=== PATIENT | male | born 1940 | race Caucasian/White ===

== ENCOUNTER 2020-06-23 12:11 | Observation (INO) | payer OTHER, SELFPAY ==
[2020-06-23] VITALS (19 sets, daily range): BP systolic 115–167; BP diastolic 69–80; PULSE 70–79; RESP 14–24; TEMP 37.2–39.2; O2SAT 93–96; BMI 29.9
[2020-06-23 12:42] LABS: Hemoglobin 13.9 g/dL (13.5-17.5); Mean Corpuscular Hemoglobin 32.1 PG (26-34); Mean Corpuscular Volume 94.5 fL (80-100); Platelet Count 273 X10^3/uL (150-400); Red Blood Cell Count 4.34 X10^6/uL (4.5-5.9)
[2020-06-23 12:43] LABS: Add Manual Diff / Slide Review YES
[2020-06-23 12:45] LABS: Appearance Urine UA CLOUDY; Bilirubin Urine UA NEGATIVE (NEGATIVE); Color Urine UA YELLOW; Glucose Urine UA NEGATIVE (Negative); Ketones Urine UA NEGATIVE (NEGATIVE); Leukocyte Esterase Urine UA 1+ (NEGATIVE); Nitrite Urine UA POSITIVE (Negative); Occult Blood Urine UA 3+ (Negative); Protein Urine UA 1+ (Negative); Specific Gravity Urine UA 1.025 (1.000-1.035); Urobilinogen Urine UA 0.2 E.U./dL (0.2)
[2020-06-23 12:49] LABS: Ammonia (NH3) < 9 umol/L (9-30)
[2020-06-23 12:49] LABS: Bacteria Urine Many (>30); RBC Urine 5-10/HPF (0-5/HPF); WBC Urine 10-30/HPF (0-5/HPF)
[2020-06-23 12:50] LABS: Culture Indicated Urine Specimen Cultured
[2020-06-23 12:52] LABS: Alanine Aminotransferase 33 IU/L (<50); Albumin 4.1 g/dL (3.5-5.0); Albumin Globulin Ratio 1.2 (1.0-2.8); Alkaline Phosphatase 72 U/L (38-126); Aspartate Aminotransferase 34 IU/L (17-59); Bilirubin Total 1.3 mg/dL (0.2-1.3); Blood Urea Nitrogen 21 mg/dL (9-20); Calcium 8.8 mg/dL (8.4-10.2); Carbon Dioxide 25 mmol/L (22-32); Chloride 103 mmol/L (98-107); Creatine Kinase 68 U/L (55-170); Estimated Glomerular Filt Rate > 60.0 mL/min (>60); Ethanol (ETOH) < 10 mg/dL; Globulin 3.5 g/dL (1.7-4.1); Glucose 110 mg/dL (80-110); HEMOLYSIS < 15 (0-50); Lactate (Lactic Acid) 1.1 mmol/L (0.7-2.1); Lipase 47 U/L (23-300); Potassium 3.8 mmol/L (3.4-5.1); Sodium 136 mmol/L (137-145); Total Protein 7.6 g/dL (6.3-8.2)
--- NOTE | 2020-06-23 12:55 | ED.GENADULT ---
HPI - General Adult General Chief complaint: Urogenital-Male Stated complaint: disoriented,fever,thinks uti from Catheter Time Seen by Provider: 06/23/20 12:21 Source: patient and family Mode of arrival: Ambulatory Limitations: altered mental status History of Present Illness HPI narrative: 79-year-old male who is here secondary to confusion and presumed infection from his indwelling urinary catheter. He is here with his daughter. A little over 1 week ago patient was seen in outside facility where he was diagnosed with urinary retention. He does have a history of BPH. The did not appear to be any infection at the time he knee was not sent home with any antibiotics. He has followed up with urology since then it told him that he needs to keep the catheter in until next week. Over the past 12-24 hours he has developed increasing confusion and did have a fever this morning. Patient's daughter thought that he potentially had a urinary tract infection. He does have a history of dementia but is normally fairly alert and oriented. Related Data Home Medications Medication Instructions Recorded Confirmed [ASPIRIN COMBINATION] 81 mg PO PRN PRN #0 03/16/16 06/23/20 tamsulosin 0.8 mg PO DAILY 06/23/20 06/23/20 Allergies Allergy/AdvReac Type Severity Reaction Status Date / Time No Known Drug Allergies Allergy Verified 06/23/20 12:21 Review of Systems Review of Systems Narrative: Patient unable to provide any review of systems. Any positives and negatives listed below came from his daughter Constitutional Constitutional: Reports fever(s) Gastrointestinal Gastrointestinal: Denies change in bowel habits and Denies vomiting Genitourinary Comments: Urinary catheter in place and draining Neurologic Neurologic: Reports confusion Psychiatric Psychiatric: Reports confusion Hematologic/Lymphatic On Anticoagulants: No Allergic/Immunologic Allergic/Immunologic: Denies urticaria Patient History Medical History BPH (benign prostatic hyperplasia) Dementia Knee osteoarthritis Urinary retention Social History household members: spouse Smoking Status: Never smoker Smoking Status: Unknown if ever smoked alcohol intake frequency: holidays/special occasions only Substance Use Type: does not use Exam Initial Vital Signs Initial Vital Signs: Vital Signs Temperature 101.6 F H 06/23/20 12:11 Pulse Rate 79 06/23/20 12:11 Respiratory Rate 14 06/23/20 12:11 Blood Pressure 161/75 H 06/23/20 12:11 Pulse Oximetry 94 06/23/20 12:11 Const General: comfortable Limitations: altered mental status HENMT Head: normal to inspection and normocephalic Resp Effort & Inspection: normal respiratory effort Auscultation: clear to auscultation bilaterally Cardio Rate: regular rate Rhythm: regular rhythm GI Inspection: non-distended Palpation: soft Skin Lesions: no lesions Rashes: no rashes Neuro General: patient alert and patient awake Cognition: abnormal cognition Extrem General: capillary refill normal and No edema Psych Appearance: grossly normal and well kempt Scores GCS [place] coma scale eye opening: Spontaneous [place] coma scale verbal response: Confused [place] coma scale motor response: Obey commands [place] coma scale total score: 14 Course Orders Ordered: ED Orders 06/23/20 12:22 EKG-12 Lead Stat 06/23/20 12:27 Ammonia (NH3) Stat Blood Culture Stat COVID19 - ADMIT (WET S[employer]K [employer]ANGER swab/PCR) Stat Complete Blood Count AUTO DIFF Stat Comprehensive Metabolic Panel Stat Ethanol (ETOH) Stat Lactate (Lactic Acid) Stat Lipase Stat Troponin & CK Cardiac Panel Stat 06/23/20 12:32 Urinalysis and Microscopic Stat Urine Culture Stat 06/23/20 12:56 CT head/brain wo con Stat Acetaminophen (Acetaminophen 325 Mg Tablet) 650 mg PO Q6HR PRN PRN Reason: Fever/Mild Pain (1-3) Last Admin: 06/23/20 15:49 Dose: 650 mg Documented by: JUANJO Enoxaparin Sodium (Enoxaparin 40 Mg/0.4 Ml Syringe) 40 mg SUBCUT DAILY TALI Sodium Chloride (Normal Saline 0.9%) 1,000 mls @ 125 mls/hr IV CONT TALI Last Admin: 06/23/20 15:55 Dose: 75 mls/hr Documented by: Infusion: 06/23/20 15:55 Dose: 0 mls/hr Documented by: Infusion: 06/23/20 14:33 Dose: 0 mls/hr Documented by: Admin: 06/23/20 13:34 Dose: 125 mls/hr Documented by: CSIEDLE Sodium Chloride (Normal Saline 0.45%) 1,000 mls @ 75 mls/hr IV CONT TALI Last Admin: 06/23/20 16:00 Dose: Not Given Documented by: STEVEN Ceftriaxone Sodium/Dextrose (Rocephin) 1 gm in 50 mls @ 100 mls/hr IV Q24H TALI Ondansetron HCl (Ondansetron 4 Mg/2 Ml Inj) 4 mg IV Q8HR PRN PRN Reason: Nausea And Vomiting Tamsulosin HCl (Tamsulosin 0.4 Mg Capsule) 0.8 mg PO DAILY TALI Discontinued Medications Ceftriaxone Sodium/Dextrose (Rocephin) 1 gm in 50 mls @ 100 mls/hr IV NOW ONE Stop: 06/23/20 13:21 Last Infusion: 06/23/20 14:06 Dose: 0 mls/hr Documented by: Admin: 06/23/20 13:34 Dose: 100 mls/hr Documented by: NAGA Vital Signs Vital signs: Vital Signs - 8 hr 06/23/20 12:11 06/23/20 12:20 06/23/20 12:26 Temperature 101.6 F H Pulse Rate 79 77 Respiratory Rate 14 Blood Pressure 161/75 H 156/78 H Pulse Oximetry 94 93 95 06/23/20 12:30 06/23/20 13:00 06/23/20 13:17 Temperature Pulse Rate 76 75 77 Respiratory Rate Blood Pressure 152/75 H 160/74 H 167/77 H Pulse Oximetry 95 95 95 06/23/20 13:30 06/23/20 14:00 Temperature Pulse Rate 73 76 Respiratory Rate Blood Pressure 159/80 H 147/74 H Pulse Oximetry 96 96 Medical Decision Making Lab Data Lab results reviewed: Yes I reviewed the patient's lab results. Result diagrams: 06/23/20 15:07 06/23/20 15:07 Labs: Lab Results 06/23/20 06/23/20 06/23/20 Range/Units 12:27 12:27 12:27 WBC 27.0 H (4.5-11.0) X10^3/uL RBC 4.34 L (4.5-5.9) X10^6/uL Hgb 13.9 (13.5-17.5) g/dL Hct 41.0 (41-53) % MCV 94.5 (80-100) fL MCH 32.1 (26-34) PG MCHC 34.0 (30-36) % RDW 13.0 (11.6-14.8) % Plt Count 273 (150-400) X10^3/uL Neut % (Auto) Not Reportable Lymph % (Auto) Not Reportable [place] % (Auto) Not Reportable Eos % (Auto) Not Reportable Baso % (Auto) Not Reportable Lymph # (Auto) Not Reportable [place] # (Auto) Not Reportable Baso # (Auto) Not Reportable Total Counted 100 Seg Neutrophils % 80.0 H (38-70) % Band Neutrophils % 3.0 (3-7) % Lymphocytes % (Manual) 6.0 L (25-45) % Monocytes % (Manual) 10.0 (2-11) % Eosinophils % (Manual) 1.0 L (2-4) % Neutrophils # (Manual) 00808 H (0555-8782) /uL RBC Morphology Normal morphology Sodium 136 L (137-145) mmol/L Potassium 3.8 (3.4-5.1) mmol/L Chloride 103 (98-107) mmol/L Carbon Dioxide 25 (22-32) mmol/L BUN 21 H (9-20) mg/dL Creatinine 1.00 (0.66-1.25) mg/dL Estimated GFR > 60.0 (>60) mL/min BUN/Creatinine Ratio 21.0 (6-22) Glucose 110 (80-110) mg/dL Lactate 1.1 (0.7-2.1) mmol/L Calcium 8.8 (8.4-10.2) mg/dL Total Bilirubin 1.3 (0.2-1.3) mg/dL AST 34 (17-59) IU/L ALT 33 (<50) IU/L Alkaline Phosphatase 72 (38-126) U/L Ammonia (9-30) umol/L Total Creatine Kinase 68 (55-170) U/L CK-MB (CK-2) TNP CK-MB (CK-2) Rel Index TNP Troponin I < 0.012 (0.01-0.034) ng/mL Total Protein 7.6 (6.3-8.2) g/dL Albumin 4.1 (3.5-5.0) g/dL Globulin 3.5 (1.7-4.1) g/dL Albumin/Globulin Ratio 1.2 (1.0-2.8) Lipase 47 (23-300) U/L Urine Color Urine Appearance Urine pH (4.5-8.0) Ur Specific [place] (1.000-1.035) Urine Protein (Negative) Urine Glucose (UA) (Negative) g/dL Urine Ketones (NEGATIVE) Urine Occult Blood (Negative) Urine Nitrate (Negative) Urine Bilirubin (NEGATIVE) Urine Urobilinogen (0.2) E.U./dL Ur Leukocyte Esterase (NEGATIVE) Urine RBC (0-5/HPF) Urine WBC (0-5/HPF) Urine Bacteria (None) Ur Culture Indicated? Ethyl Alcohol < 10 ( - 10) mg/dL SARS-CoV-2 (PCR) (Negative) 06/23/20 06/23/20 06/23/20 Range/Units 12:27 12:27 12:32 WBC (4.5-11.0) X10^3/uL RBC (4.5-5.9) X10^6/uL Hgb (13.5-17.5) g/dL Hct (41-53) % MCV (80-100) fL MCH (26-34) PG MCHC (30-36) % RDW (11.6-14.8) % Plt Count (150-400) X10^3/uL Neut % (Auto) Lymph % (Auto) [place] % (Auto) Eos % (Auto) Baso % (Auto) Lymph # (Auto) [place] # (Auto) Baso # (Auto) Total Counted Seg Neutrophils % (38-70) % Band Neutrophils % (3-7) % Lymphocytes % (Manual) (25-45) % Monocytes % (Manual) (2-11) % Eosinophils % (Manual) (2-4) % Neutrophils # (Manual) (7087-7042) /uL RBC Morphology Sodium (137-145) mmol/L Potassium (3.4-5.1) mmol/L Chloride (98-107) mmol/L Carbon Dioxide (22-32) mmol/L BUN (9-20) mg/dL Creatinine (0.66-1.25) mg/dL Estimated GFR (>60) mL/min BUN/Creatinine Ratio (6-22) Glucose (80-110) mg/dL Lactate (0.7-2.1) mmol/L Calcium (8.4-10.2) mg/dL Total Bilirubin (0.2-1.3) mg/dL AST (17-59) IU/L ALT (<50) IU/L Alkaline Phosphatase (38-126) U/L Ammonia < 9 L (9-30) umol/L Total Creatine Kinase (55-170) U/L CK-MB (CK-2) CK-MB (CK-2) Rel Index Troponin I (0.01-0.034) ng/mL Total Protein (6.3-8.2) g/dL Albumin (3.5-5.0) g/dL Globulin (1.7-4.1) g/dL Albumin/Globulin Ratio (1.0-2.8) Lipase (23-300) U/L Urine Color Yellow Urine Appearance Cloudy Urine pH 6.0 (4.5-8.0) Ur Specific [place] 1.025 (1.000-1.035) Urine Protein 1+ H (Negative) Urine Glucose (UA) Negative (Negative) g/dL Urine Ketones Negative (NEGATIVE) Urine Occult Blood 3+ H (Negative) Urine Nitrate Positive (Negative) Urine Bilirubin Negative (NEGATIVE) Urine Urobilinogen 0.2 (0.2) E.U./dL Ur Leukocyte Esterase 1+ H (NEGATIVE) Urine RBC 5-10/hpf H (0-5/HPF) Urine WBC 10-30/hpf H (0-5/HPF) Urine Bacteria Many (>30) H (None) Ur Culture Indicated? Specimen cultured Ethyl Alcohol ( - 10) mg/dL SARS-CoV-2 (PCR) Negative (Negative) Imaging Data CT scan - head: Radiologist's Impression: [address] [id number] Scan ReportSigned Patient: Fox Coleman R#: [id number]: 2Acct:[id number]/Sex: 79 / MDate of Service: 06/23/20Loc: EDAccession Number: [id number] Procedure: CT head/brain wo con Ordering Provider: Shankar Ricardo D.O. PROCEDURE: CT HEAD/BRAIN WO CON INDICATIONS: Altered mental status TECHNIQUE: Noncontrast 4.5 mm thick angled axial sections acquired from the foramen magnum to the vertex, with coronal and sagittal reformats. For radiation dose reduction, the following was used: automated exposure control, adjustment of mA and/or kV according to patient size. COMPARISON: [facility], CT, HEAD WITHOUT CONTRAST, 03/16/2016, 11:05. FINDINGS: Image quality: Excellent. CSF spaces: Basal cisterns are patent. No extra-axial fluid collections. Ventricles are normal in size and shape. Brain: No midline shift. No intracranial masses or hemorrhage. [place]-white matter interface is normal. Subcortical and periventricular white matter hypodensities are consistent with microvascular ischemic disease. Skull and face: Calvarium and visualized facial bones are intact, without suspicious lesions. Sinuses: Visualized sinuses and mastoids are clear. IMPRESSION: 1. No acute intracranial abnormality. 2. Moderate cerebral volume loss with chronic microvascular ischemic changes. Dictated by: Sagar Chaudhary M.D. on 06/23/2020 at 13:19 Approved by: Sagar Chaudhary M.D. on 06/23/2020 at 13:23 ECG Data Attestation: I personally reviewed and interpreted this ECG as follows: Prior ECG tracings: not available for review Interpretation: Sinus rhythm Ventricular rate is 75 Left axis deviation Normal QRS Normal QTC Nonspecific ST T wave changes MDM Narrative Medical decision making narrative: Patient is confused and is unable to provide any HPI. Does have a leukocytosis and is febrile. Has not hypotensive. Urinalysis consistent with urinary tract infection. Was given antibiotics in the ER. Blood cultures obtained. Given the fact that he was not hypotensive we will hold on the 30 cc/kilogram of fluids. Discussed the case with Dr. Puri with Internal Medicine who will admit for further evaluation and treatment. Discussed this with the patient's daughter who expressed understanding and agreement. Discharge Plan Departure Patient Disposition: Admitted As Inpatient Clinical Impression: Urinary tract infection, Altered mental status Admit Date/Time: 06/23/20 14:02 Admit Provider: Guerrero Puri
[2020-06-23 13:00] LABS: Neutrophils Absolute Manual 22410 /uL (3000-5900); Total Cells Counted 100
[2020-06-23 13:01] LABS: RBC Morphology Normal Morphology
[2020-06-23 13:03] LABS: Troponin I < 0.012 ng/mL (0.01-0.034)
[2020-06-23] MEDS: SODIUM CHLORIDE 0.9% 1,000 ML 125 ML IV (13:34)
[2020-06-23] MEDS: CEFTRIAXONE 1 GM/50 ML FROZ.PIGGY IV (13:34)
[2020-06-23 13:36] LABS: COVID19 - ADMIT (NP swab/PCR) Negative (Negative)
--- NOTE | 2020-06-23 14:00 | PC.NURSE ---
Old catheter insertion area noted to be inflammed and irritated with some pus exudate around meatus. cleaned, and education given to daughter (caregiver) on how to maintain area to prevent infection. Cath removed and replaced with new 16F rome cath with some blood clots noted. output cloudy yellow and odorus. tolerated insertion well.
--- NOTE | 2020-06-23 14:53 | P.HP_ITS ---
History of Present Illness History of Present Illness Date Patient Seen: 06/23/20 Time Patient Seen: 16:30 Date of Onset of Symptoms: 06/22/20 Chief complaint: disoriented,fever,thinks uti from Catheter Narrative: 79M with PMH of BPH with urinary retention with rome, knee osteoarthritis, mild dementia who presents with fever, decreased appetite, and confusion. Patient had recent visit to ER approximately two weeks ago and was diagnosed with urinary retention. He had a rome placed and he has been on tamsulosin. He has been following up with urology who recommended keeping in rome for another week. He had not been on antibiotics. He was noted yesterday to have some abdominal discomfort and be fore tired than usual. This AM he was c onfused, had no appetite. His family noted that he had a fever at home and because of this he was brought into the ER. He denied any cough, SOB. He had mild nausea, and mild headache. He denied diarrhea, chest pain, dysuria, blood in the urine. In the ER he was noted to have T 101.6, normal blood pressure and heart rate. Labs were notable for a WBC of 27, 80% PMNs. UA showed 3+ occult blood, 1+ UE, 10-30 WBCs, many urine bacteria. He had rome exchanged in ER. He had CT head done that was unremarkable for any acute process. He was given IV fluids, started on IV ceftriaxone. Blood cultures ordered and pending. He was admitted for further treatment. Patient History Medical History (Updated 06/23/20 @ 15:05 by Guerrero Puri MD) BPH (benign prostatic hyperplasia) Dementia Knee osteoarthritis Urinary retention Family & Social History Safety & Behavioral: Feels Safe in Current Yes Environment Been Physically Hurt or No Threatened By a Person Tobacco & Substance use: Smoking Status Denies alcohol intake frequency holiday/special occasion Substance Use Type does not use Meds Home Medications and Allergies Home Medications Medication Instructions Recorded Confirmed Type ketorolac #0 12/21/15 History [ASPIRIN COMBINATION] PRN PRN #0 03/16/16 History meclizine 25 mg PO QIDP PRN #20 tab 03/16/16 Rx Allergies Allergy/AdvReac Type Severity Reaction Status Date / Time No Known Drug Allergies Allergy Verified 06/23/20 12:21 Review of Systems Review of Systems Narrative: Patient encephalopathic due to urinary infection and unable to provide detailed systems ROS: Yes unobtainable due to mental status Exam Vital Signs (past 8 hours): - 06/23/20 12:11 06/23/20 12:20 06/23/20 12:26 Temperature 101.6 F H Pulse Rate 79 77 Respiratory Rate 14 Blood Pressure 161/75 H 156/78 H Pulse Oximetry 94 93 95 06/23/20 12:30 06/23/20 13:00 06/23/20 13:17 Temperature Pulse Rate 76 75 77 Respiratory Rate Blood Pressure 152/75 H 160/74 H 167/77 H Pulse Oximetry 95 95 95 06/23/20 13:30 06/23/20 14:00 06/23/20 14:33 Temperature 101.3 F H Pulse Rate 73 76 Respiratory Rate Blood Pressure 159/80 H 147/74 H Pulse Oximetry 96 96 Oxygen Delivery Method Room Air Narrative Exam Narrative: General no acute distress Eyes PERRL Cardiovascular regular rate and rhythm Pulmonary clear to auscultation bilaterally GI normal BS, no abdominal tenderness in any quadrant, no rebounding/guarding rome in place draining yellow liquid SKIN no rashes NEURO awake, disoriented to place and time, oriented to self, mumbling conversation does not complete full answers or sentences EXTREM normal upper and lower extremity strength Objective Labs Result Diagrams: 06/23/20 15:07 06/23/20 15:07 Labs: Laboratory Results - last 24 hr 06/23/20 06/23/20 06/23/20 12:27 12:27 12:27 WBC 27.0 H RBC 4.34 L Hgb 13.9 Hct 41.0 MCV 94.5 MCH 32.1 MCHC 34.0 RDW 13.0 Plt Count 273 Neut % (Auto) Not Reportable Lymph % (Auto) Not Reportable [place] % (Auto) Not Reportable Eos % (Auto) Not Reportable Baso % (Auto) Not Reportable Lymph # (Auto) Not Reportable [place] # (Auto) Not Reportable Baso # (Auto) Not Reportable Total Counted 100 Seg Neutrophils % 80.0 H Band Neutrophils % 3.0 Lymphocytes % (Manual) 6.0 L Monocytes % (Manual) 10.0 Eosinophils % (Manual) 1.0 L Neutrophils # (Manual) 89179 H RBC Morphology Normal morphology Sodium 136 L Potassium 3.8 Chloride 103 Carbon Dioxide 25 BUN 21 H Creatinine 1.00 Estimated GFR > 60.0 BUN/Creatinine Ratio 21.0 Glucose 110 Lactate 1.1 Calcium 8.8 Total Bilirubin 1.3 AST 34 ALT 33 Alkaline Phosphatase 72 Ammonia Total Creatine Kinase 68 CK-MB (CK-2) TNP CK-MB (CK-2) Rel Index TNP Troponin I < 0.012 Total Protein 7.6 Albumin 4.1 Globulin 3.5 Albumin/Globulin Ratio 1.2 Lipase 47 Urine Color Urine Appearance Urine pH Ur Specific [place] Urine Protein Urine Glucose (UA) Urine Ketones Urine Occult Blood Urine Nitrate Urine Bilirubin Urine Urobilinogen Ur Leukocyte Esterase Urine RBC Urine WBC Urine Bacteria Ur Culture Indicated? Ethyl Alcohol < 10 SARS-CoV-2 (PCR) 06/23/20 06/23/20 06/23/20 12:27 12:27 12:32 WBC RBC Hgb Hct MCV MCH MCHC RDW Plt Count Neut % (Auto) Lymph % (Auto) [place] % (Auto) Eos % (Auto) Baso % (Auto) Lymph # (Auto) [place] # (Auto) Baso # (Auto) Total Counted Seg Neutrophils % Band Neutrophils % Lymphocytes % (Manual) Monocytes % (Manual) Eosinophils % (Manual) Neutrophils # (Manual) RBC Morphology Sodium Potassium Chloride Carbon Dioxide BUN Creatinine Estimated GFR BUN/Creatinine Ratio Glucose Lactate Calcium Total Bilirubin AST ALT Alkaline Phosphatase Ammonia < 9 L Total Creatine Kinase CK-MB (CK-2) CK-MB (CK-2) Rel Index Troponin I Total Protein Albumin Globulin Albumin/Globulin Ratio Lipase Urine Color Yellow Urine Appearance Cloudy Urine pH 6.0 Ur Specific [place] 1.025 Urine Protein 1+ H Urine Glucose (UA) Negative Urine Ketones Negative Urine Occult Blood 3+ H Urine Nitrate Positive Urine Bilirubin Negative Urine Urobilinogen 0.2 Ur Leukocyte Esterase 1+ H Urine RBC 5-10/hpf H Urine WBC 10-30/hpf H Urine Bacteria Many (>30) H Ur Culture Indicated? 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 1. UTI complicated by urinary retention with rome infected - SIRS positive with fever >101, WBC 27. Rule out sepsis. Has organ dysfunction with metabolic encephalopathy. Ordered for IV fluids. Lactate normal. Normal blood pressure. [place] has been exchanged. Will keep on IV fluids, and IV ceftriaxone, tylenol PRN, pending urine and blood cultures. 2. Metabolic encephalopathy secondary to UTI - treating as above with abx. CT head negative. Continue to monitor. 3. Dementia, mild - not on any medications, continue to monitor, reorient as able, and family at bedside when able 4. Osteoarthritis, knee - tylenol PRN 5. Urinary retention - will need to keep rome in place on DC and follow with urology. Diet: Regular PPX: lovenox 40 SC daily CODE: Full COVID-19 COVID-19 status: Negative Result date/Date tested (Pos, Neg/Pending): 06/23/20 Time Spent With Patient Time with patient: 15-24 minutes Quality MIPS - Admit Advanced Care Plan / Current Medications Measures: #47 ? Advanced Care Plan Clinician documentation instruction: document at admission. [x] I confirmed that the patient's Advance Care Plan is present, code status is documented, or surrogate decision maker is listed in the patient?s medical record. [SATISFIES MIPS PERFORMANCE] If Yes, Stop Here [] The patient?s Advance Care plan is not present because: (select) [MIPS PERFORMANCE EXCEPTION/EXCLUSION] [] I confirmed today that the patient does not wish or was not able to name a surrogate decision maker or provide an Advance Care Plan. [] Hospice care is currently being provided or has been provided this calendar year [] I did NOT confirm today the presence of an Advance Care Plan or surrogate decision maker documented within the patient's medical record. [DOES NOT SATISFY MIPS PERFORMANCE] #130 - Documentation of Current Medications in the Medical Record Clinician documentation instruction: use macro the first time you see a patient. [x] I have utilized all available immediate resources to obtain, update, or review the patient?s current medications. [SATISFIES MIPS PERFORMANCE] If Yes, Stop Here [] The patient is not eligible for medication reconciliation; the patient is in an emergent medical situation where delaying treatment would jeopardize the patient?s health. [MIPS PERFORMANCE EXCEPTION/EXCLUSION] [] I did NOT confirm, update or review the patient's current list of medications today. [DOES NOT SATISFY MIPS PERFORMANCE] MIPS - CL Central Venous Catheter Placement Measure: #76 ? Prevention of Central Venous Catheter (CVC) ? Related Bloodstream Infection Clinician documentation instruction: use macro every time you place a central line. [] All elements of Maximal Sterile Barrier Technique, including hand hygiene, skin prep, and sterile ultrasound technique (if used) were followed. [SATISFIES MIPS PERFORMANCE] If Yes, Stop Here [] If ?No?, the medical reason all elements were NOT used for medical reason [] (ex. emergent condition). [] Maximal Sterile Barrier Technique was not followed, no reason provided [DOES NOT SATISFY MIPS PERFORMANCE] MIPS - DC Heart Failure Measures: #5 - Heart Failure (HF): Angiotensin-Converting Enzyme (SHWETHA) Inhibitor or Angiotensin Receptor Martin (ARB) Therapy for Left Ventricular Systolic Dysfunction (LVSD) and #8 - Heart Failure (HF): Beta-Martin Therapy for Left Ventricular Systolic Dysfunction (LVSD) Clinician documentation instruction: use macro at every CHF discharge. [] The patient has current or prior documentation of left ventricular ejection fraction (LVEF) less than 40%, or moderate or severely depressed left ventricular systolic function. Answer both: [SATISFIES MIPS PERFORMANCE] [] The patient was prescribed or already taking an Angiotensin-Converting Enzyme (SHWETHA) Inhibitor, or Angiotensin Receptor Martin (ARB). [] The patient was prescribed or already taking a beta-martin. If Yes to Both, Stop Here [] Patient not prescribed/taking: [MIPS PERFORMANCE EXCEPTION/EXCLUSION] [] SHWETHA or ARB for medical/patient/system reason(s) including [] (ex. allergy, intolerance, contraindication) [] Beta-martin for medical/patient/system reason(s) including [] (ex. all ergy, intolerance, contraindication) [] Patient not prescribed/taking: [DOES NOT SATISFY MIPS PERFORMANCE] [] SHWETHA or ARB, no reason given [] Beta-martin, no reason given
[2020-06-23 15:26] LABS: Add Manual Diff / Slide Review NO; Basophils Absolute Auto 200 /uL (0-100); Basophils Percent Auto 0.6 % (0-2); Eosinophils Absolute Auto 0 /uL (0-450); Hematocrit 40.9 % (41-53); Hemoglobin 13.9 g/dL (13.5-17.5); Lymphocytes Absolute Auto 900 /uL (1100-4500); Lymphocytes Percent Auto 3.1 % (25-40); Mean Corpuscular HGB Conc 34.1 % (30-36); Mean Corpuscular Hemoglobin 32.4 PG (26-34); Mean Corpuscular Volume 95.2 fL (80-100); Monocytes Absolute Auto 2200 /uL (0-900); Neutrophils Absolute Auto 23900 /uL (1500-7000); Neutrophils Percent Auto 88.3 % (50-75); Platelet Count 276 X10^3/uL (150-400); Red Blood Cell Count 4.29 X10^6/uL (4.5-5.9); Red Cell Distribution Width 12.5 % (11.6-14.8); White Blood Cell Count 27.1 X10^3/uL (4.5-11.0)
[2020-06-23 15:33] LABS: BUN Creatinine Ratio 20.8 (6-22); Blood Urea Nitrogen 21 mg/dL (9-20); Calcium 8.8 mg/dL (8.4-10.2); Carbon Dioxide 27 mmol/L (22-32); Chloride 104 mmol/L (98-107); Estimated Glomerular Filt Rate > 60.0 mL/min (>60); Glucose 109 mg/dL (80-110); HEMOLYSIS < 15 (0-50); Potassium 3.8 mmol/L (3.4-5.1); Sodium 137 mmol/L (137-145)
[2020-06-23] MEDS: ACETAMINOPHEN 325 MG TABLET 650 MG PO ×2 (15:49→22:51)
[2020-06-23] MEDS: SODIUM CHLORIDE 0.9% 1,000 ML 75 ML IV (15:55)
[2020-06-23 16:50] LABS: Lactate (Lactic Acid) 1.1 mmol/L (0.7-2.1)
--- NOTE | 2020-06-23 16:56 | PC.ADMIT ---
[email or web address] [facility] Admission Note: The patient,Fox Coleman,79 y/o, was given written information regarding hospital policies, unit procedures and contact persons. Patient's smoking status: Never smoker. Admission complete via telephone with Julianne Coleman as patient is too confused to answer admission questions. Julianne states she can be reached at [phone] or her dtr Dany can be reached at [phone] for further questions and d/c planning. Vital Signs - 8 hr 06/23/20 12:11 06/23/20 12:20 06/23/20 12:26 Temperature 101.6 F H Pulse Rate 79 77 Respiratory Rate 14 Blood Pressure 161/75 H 156/78 H Pulse Oximetry 94 93 95 06/23/20 12:30 06/23/20 13:00 06/23/20 13:17 Temperature Pulse Rate 76 75 77 Respiratory Rate Blood Pressure 152/75 H 160/74 H 167/77 H Pulse Oximetry 95 95 95 06/23/20 13:30 06/23/20 14:00 06/23/20 14:33 Temperature 101.3 F H Pulse Rate 73 76 Respiratory Rate Blood Pressure 159/80 H 147/74 H Pulse Oximetry 96 96 06/23/20 14:45 06/23/20 15:49 06/23/20 16:32 Temperature 101.5 F H 101.5 F H 102.5 F H Pulse Rate 76 76 Respiratory Rate 17 24 Blood Pressure 146/73 H 133/75 Pulse Oximetry 95 93
[2020-06-23] MEDS: SODIUM CHLORIDE 0.45% 1,000 ML 75 ML IV (22:50)
--- NOTE | 2020-06-23 23:26 | PC.NURSE ---
Patient pleasantly confused. A&Ox1, poor appetite. VSS, RA, afebrile. Patient able to follow commands and denies pain. Continues to be febrile and recieved orders to increase tylenol 650 mg to 4hrs. Encouragement and assistance needed to remind and help turning q 2 hours. offered cold liquids but declined to eat this evening. IVF 1/2 NS at 100ml/hr. [place] draining adequate clear dark yellow urine. Catheter care provided noted tenderness and redness to meatus, and slight yellow drainage.
[2020-06-24] VITALS (15 sets, daily range): BP systolic 114–135; BP diastolic 58–74; PULSE 63–76; RESP 16–18; TEMP 36.8–38.2; O2SAT 93–95
[2020-06-24] MEDS: TAMSULOSIN 0.4 MG CAPSULE 0.8 MG PO (08:31)
[2020-06-24] MEDS: ENOXAPARIN 40 MG/0.4 ML SYRINGE SUBCUT (08:32)
[2020-06-24 08:41] LABS: Add Manual Diff / Slide Review NO; Basophils Absolute Auto 100 /uL (0-100); Basophils Percent Auto 0.3 % (0-2); Eosinophils Absolute Auto 0 /uL (0-450); Eosinophils Percent Auto 0.2 % (2-4); Hematocrit 39.7 % (41-53); Hemoglobin 13.6 g/dL (13.5-17.5); Lymphocytes Absolute Auto 1300 /uL (1100-4500); Lymphocytes Percent Auto 5.3 % (25-40); Mean Corpuscular HGB Conc 34.3 % (30-36); Mean Corpuscular Hemoglobin 32.8 PG (26-34); Mean Corpuscular Volume 95.6 fL (80-100); Monocytes Absolute Auto 2100 /uL (0-900); Monocytes Percent Auto 8.6 % (3-14); Neutrophils Absolute Auto 20900 /uL (1500-7000); Neutrophils Percent Auto 85.6 % (50-75); Platelet Count 238 X10^3/uL (150-400); Red Blood Cell Count 4.15 X10^6/uL (4.5-5.9); Red Cell Distribution Width 13.2 % (11.6-14.8); White Blood Cell Count 24.5 X10^3/uL (4.5-11.0)
[2020-06-24 08:48] LABS: BUN Creatinine Ratio 20.8 (6-22); Blood Urea Nitrogen 21 mg/dL (9-20); Calcium 8.7 mg/dL (8.4-10.2); Carbon Dioxide 29 mmol/L (22-32); Chloride 105 mmol/L (98-107); Estimated Glomerular Filt Rate > 60.0 mL/min (>60); Glucose 116 mg/dL (80-110); HEMOLYSIS < 15 (0-50); Sodium 137 mmol/L (137-145)
--- NOTE | 2020-06-24 09:52 | PC.NURSE ---
Addendum entered by Blanca Hester R.N. 06/24/20 13:21: Patients temp at 1200 100.1, given tylenol. Patient is going to stay for one more night as he had a fever today. Visiting with his daughter now. Original Note: Assess- Patient is alert and orientedx2, he does have some forgetfulness and confusion. He has a rome catheter in putting out yellow urine. Doing good catheter care as patient has had some purulent drainage from end of urethra. He denies dysuria and has not blood noticed in his urine. IVF to R.AC. Patient is appropriate and stays in bed, SCDs in place, and he is visiting with his daughter Grace. Ate a small amount of breakfast and he is drinking some coffee
[2020-06-24] MEDS: CEFTRIAXONE 1 GM/50 ML FROZ.PIGGY IV (11:52)
[2020-06-24] MEDS: ACETAMINOPHEN 325 MG TABLET 650 MG PO ×2 (12:51→20:33)
[2020-06-24] MEDS: SODIUM CHLORIDE 0.45% 1,000 ML 75 ML IV (12:52)
--- NOTE | 2020-06-24 13:29 | P.PN_ITS ---
Subjective Subjective Date Patient Seen: 06/24/20 Time Patient Seen: 08:29 Interval history: He feels improved today and is less confused. However he continues to spike fevers. Exam Vital Signs (past 8 hours): - 06/24/20 08:43 06/24/20 09:39 06/24/20 12:23 Temperature 99.0 F 100.1 F H Pulse Rate 63 76 Respiratory Rate 18 16 Blood Pressure 114/69 135/69 Pulse Oximetry 94 95 93 06/24/20 12:51 Temperature 100 F H Pulse Rate Respiratory Rate Blood Pressure Pulse Oximetry Oxygen Delivery Method Room Air Oxygen Flow Rate 0 Narrative Exam Narrative: Narrative: General no acute distress Eyes PERRL Cardiovascular regular rate and rhythm Pulmonary clear to auscultation bilaterally GI normal BS, no abdominal tenderness in any quadrant, no rebounding/guarding rome in place draining yellow liquid SKIN no rashes NEURO awake, disoriented to place and time, oriented to self, mumbling conversation does not complete full answers or sentences EXTREM normal upper and lower extremity strength Objective Labs Result Diagrams: 06/24/20 08:30 06/24/20 08:30 Labs: Laboratory Results - last 24 hr 06/23/20 06/23/20 06/23/20 12:27 15:07 15:07 WBC 27.1 H RBC 4.29 L Hgb 13.9 Hct 40.9 L MCV 95.2 MCH 32.4 MCHC 34.1 RDW 12.5 Plt Count 276 Neut % (Auto) 88.3 H Lymph % (Auto) 3.1 L [place] % (Auto) 8.0 Eos % (Auto) 0.0 L Baso % (Auto) 0.6 Neut # (Auto) 68282 H Lymph # (Auto) 900 L [place] # (Auto) 2200 H Eos # (Auto) 0 Baso # (Auto) 200 H Sodium 137 Potassium 3.8 Chloride 104 Carbon Dioxide 27 BUN 21 H Creatinine 1.01 Estimated GFR > 60.0 BUN/Creatinine Ratio 20.8 Glucose 109 Lactate Calcium 8.8 SARS-CoV-2 (PCR) Negative 06/23/20 06/24/20 06/24/20 16:35 08:30 08:30 WBC 24.5 H RBC 4.15 L Hgb 13.6 Hct 39.7 L MCV 95.6 MCH 32.8 MCHC 34.3 RDW 13.2 Plt Count 238 Neut % (Auto) 85.6 H Lymph % (Auto) 5.3 L [place] % (Auto) 8.6 Eos % (Auto) 0.2 L Baso % (Auto) 0.3 Neut # (Auto) 94933 H Lymph # (Auto) 1300 [place] # (Auto) 2100 H Eos # (Auto) 0 Baso # (Auto) 100 Sodium 137 Potassium 4.0 Chloride 105 Carbon Dioxide 29 BUN 21 H Creatinine 1.01 Estimated GFR > 60.0 BUN/Creatinine Ratio 20.8 Glucose 116 H Lactate 1.1 Calcium 8.7 SARS-CoV-2 (PCR) [facility] Medical History BPH (benign prostatic hyperplasia) Dementia Knee osteoarthritis Urinary retention Social History household members: spouse Smoking Status: Never smoker Assessment & Plan Assessment & Plan narrative: Assessment & Plan narrative: 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 1. UTI complicated by urinary retention with rome infected - SIRS positive with fever >101, WBC 27. Rule out sepsis. Has organ dysfunction with metabolic encephalopathy. Ordered for IV fluids. Lactate normal. Normal blood pressure. Rome has been exchanged. Will keep on IV fluids, and IV ceftriaxone, tylenol P RN, urine gram negative rods pending speciation. Blood cultures no growth to date. Continued spiking fevers 06/24 2. Metabolic encephalopathy secondary to UTI - treating as above with abx. CT head negative. Improving symptoms, but not at baseline per family. 3. Dementia, mild - not on any medications, continue to monitor, reorient as able, and family at bedside when able 4. Osteoarthritis, knee - tylenol PRN 5. Urinary retention - will need to keep rome in place on DC and follow with urology. Diet: Regular PPX: lovenox 40 SC daily CODE: Full COVID-19 COVID-19 status: Negative Quality MIPS - Admit Advanced Care Plan / Current Medications Measures: #47 ? Advanced Care Plan Clinician documentation instruction: document at admission. [] I confirmed that the patient's Advance Care Plan is present, code status is documented, or surrogate decision maker is listed in the patient?s medical record. [SATISFIES MIPS PERFORMANCE] If Yes, Stop Here [] The patient?s Advance Care plan is not present because: (select) [MIPS PERFORMANCE EXCEPTION/EXCLUSION] [] I confirmed today that the patient does not wish or was not able to name a surrogate decision maker or provide an Advance Care Plan. [] Hospice care is currently being provided or has been provided this calendar year [] I did NOT confirm today the presence of an Advance Care Plan or surrogate decision maker documented within the patient's medical record. [DOES NOT SATISFY MIPS PERFORMANCE] #130 - Documentation of Current Medications in the Medical Record Clinician documentation instruction: use macro the first time you see a patient. [] I have utilized all available immediate resources to obtain, update, or review the patient?s current medications. [SATISFIES MIPS PERFORMANCE] If Yes, Stop Here [] The patient is not eligible for medication reconciliation; the patient is in an emergent medical situation where delaying treatment would jeopardize the patient?s health. [MIPS PERFORMANCE EXCEPTION/EXCLUSION] [] I did NOT confirm, update or review the patient's current list of medications today. [DOES NOT SATISFY MIPS PERFORMANCE] MIPS - CL Central Venous Catheter Placement Measure: #76 ? Prevention of Central Venous Catheter (CVC) ? Related Bloodstream Infection Clinician documentation instruction: use macro every time you place a central line. [] All elements of Maximal Sterile Barrier Technique, including hand hygiene, skin prep, and sterile ultrasound technique (if used) were followed. [SATISFIES MIPS PERFORMANCE] If Yes, Stop Here [] If ?No?, the medical reason all elements were NOT used for medical reason [] (ex. emergent condition). [] Maximal Sterile Barrier Technique was not followed, no reason provided [DOES NOT SATISFY MIPS PERFORMANCE] MIPS - DC Heart Failure Measures: #5 - Heart Failure (HF): Angiotensin-Converting Enzyme (SHWETHA) Inhibitor or Angiotensin Receptor Martin (ARB) Therapy for Left Ventricular Systolic Dysfunction (LVSD) and #8 - Heart Failure (HF): Beta-Martin Therapy for Left Ventricular Systolic Dysfunction (LVSD) Clinician documentation instruction: use macro at every CHF discharge. [] The patient has current or prior documentation of left ventricular ejection fraction (LVEF) less than 40%, or moderate or severely depressed left ventricular systolic function. Answer both: [SATISFIES MIPS PERFORMANCE] [] The patient was prescribed or already taking an Angiotensin-Converting Enzyme (SHWETHA) Inhibitor, or Angiotensin Receptor Martin (ARB). [] The patient was prescribed or already taking a beta-martin. If Yes to Both, Stop Here [] Patient not prescribed/taking: [MIPS PERFORMANCE EXCEPTION/EXCLUSION] [] SHWETHA or ARB for medical/patient/system reason(s) including [] (ex. allergy, intolerance, contraindication) [] Beta-martin for medical/patient/system reason(s) including [] (ex. allergy, intolerance, contraindication) [] Patient not prescribed/taking: [DOES NOT SATISFY MIPS PERFORMANCE] [] SHWETHA or ARB, no reason given [] Beta-martin, no reason given
--- NOTE | 2020-06-24 15:29 | CM.DANOTE ---
Patient is a 79 year old male who was admitted on 06/23/20 for Disoriented/poss UTI. Pt has [facility] for insurance and his PCP is Dr. Dann Jensen. EMR was reviewed. Per MD, pt with hx of urinary retention, mild dementia, and established with Urologist. Pt admitted with UTI encephalopathy. Per RN, pt developed a fever this afternoon and discharged cancelled to observe overnight. Dtr Grace had been bedside but left to go home for the night. SW met briefly bedside with pt and explained role and he was able to answer simple questions appropriately but had difficulty with more complex thoughts and communication. Pt able to confirm he lives at home in [place] with his spouse and dogs and is retired physician. Pt quite active and independent at baseline but family helps to manage meds. Spouse home taking care of their animals and Dtr/DPOA Grace lives in [place] and has been pt's designated visitor and she plans to return tomorrow and provide transport home when he is medically stable to discharge. Plan: SW to follow closely tomorrow to confirm safe plan of home with spouse via Dtr POV when medically stable and any further identified needs. [facility] [place] Discharge Planning/Care Management CM Discharge Assessment Start: 06/24/20 15:26 Freq: Status: Active Protocol: Document 06/24/20 15:26 BF (Rec: 06/24/20 15:28 [id number]) Discharge Planning Assessment Assigned Hiv Cts Specialist [facility]U [place]/Assigned Designee Name Jluis Edwards Advance Directives? No Advance Directives on File No History Provided By Patient,Significant Other, Medical Record Has Patient been admitted in last 30 No days? Prior Living Arrangements House Household Members spouse Type of transporation used prior to Relies on Others admit Independent with ADL's Yes Is patient alert and oriented? Yes: mild dementia Needs Assistance With Managing Medications Caregiver for Another No Barriers to Discharge No Discharge Plan Home Transportation Arrangement Jluis Edwards can transport home at d/c Referrals Initiated None needed Review Status In Process Please Provide Date Initial DC 06/24/20 Assessment Was Performed Next Review Type Continued Stay Review
[2020-06-24] MEDS: POLYVINYL ALCOHOL DROPS 1 DROPS EYE-BOTH (18:26)
[2020-06-24] MEDS: diphenhydrAMINE 25 MG TABLET PO (18:26)
[2020-06-25] VITALS: BP 118/69; PULSE 65; RESP 16; TEMP 37.2; O2SAT 93
[2020-06-25 03:07] VITALS: BP 125/65; PULSE 68; RESP 16; TEMP 37.4; O2SAT 93
[2020-06-25 03:11] VITALS: TEMP 37.4
[2020-06-25] MEDS: ACETAMINOPHEN 325 MG TABLET 650 MG PO (03:11)
[2020-06-25] MEDS: SODIUM CHLORIDE 0.45% 1,000 ML 75 ML IV (04:08)
[2020-06-25 06:30] LABS: Add Manual Diff / Slide Review NO; Basophils Absolute Auto 0 /uL (0-100); Basophils Percent Auto 0.2 % (0-2); Eosinophils Absolute Auto 100 /uL (0-450); Eosinophils Percent Auto 0.9 % (2-4); Hematocrit 37.1 % (41-53); Hemoglobin 12.7 g/dL (13.5-17.5); Lymphocytes Absolute Auto 1400 /uL (1100-4500); Lymphocytes Percent Auto 8.3 % (25-40); Mean Corpuscular HGB Conc 34.3 % (30-36); Mean Corpuscular Hemoglobin 32.5 PG (26-34); Mean Corpuscular Volume 94.8 fL (80-100); Monocytes Absolute Auto 1300 /uL (0-900); Neutrophils Absolute Auto 13700 /uL (1500-7000); Neutrophils Percent Auto 82.6 % (50-75); Platelet Count 244 X10^3/uL (150-400); Red Blood Cell Count 3.91 X10^6/uL (4.5-5.9); White Blood Cell Count 16.6 X10^3/uL (4.5-11.0)
[2020-06-25 06:41] LABS: BUN Creatinine Ratio 19.8 (6-22); Blood Urea Nitrogen 18 mg/dL (9-20); Calcium 8.4 mg/dL (8.4-10.2); Carbon Dioxide 24 mmol/L (22-32); Chloride 105 mmol/L (98-107); Estimated Glomerular Filt Rate > 60.0 mL/min (>60); Glucose 97 mg/dL (80-110); HEMOLYSIS < 15 (0-50); Potassium 3.6 mmol/L (3.4-5.1); Sodium 136 mmol/L (137-145)
[2020-06-25 07:00] VITALS: BP 119/72; PULSE 67; RESP 16; TEMP 36.9; O2SAT 95
[2020-06-25] MEDS: ENOXAPARIN 40 MG/0.4 ML SYRINGE SUBCUT (09:17)
[2020-06-25] MEDS: TAMSULOSIN 0.4 MG CAPSULE 0.8 MG PO (09:18)
--- NOTE | 2020-06-25 10:23 | CM.DPC ---
DCP Cont: Per MD, pt is medically stable to d/c home today with Dtr after last dose of Abx and no identified barriers to discharge. Per RN, Dtr is currently bedside and aware of plan to d/c home today and agreeable to transport today. Plan: Patient to d/c home via Dtr POV and assist and no further SW needs at this time. [facility] [place]
[2020-06-25] MEDS: CEFTRIAXONE 1 GM/50 ML FROZ.PIGGY IV (11:03)
--- NOTE | 2020-06-25 12:05 | PC.NURSE ---
Day shift note: Patient discharge home per MD order. Pericare and catheter care performed prior to discharge. Catheter bag changed to leg bag, supplies given for home. Catheter care teaching done at bedside with patient and daughter Dany. Discharge instructions given to both patient and daughter, discussed importance of catheter jail, antibiotic adherence, F/U with Urology on 06/28/20, s/sx of infection. Patient dressed self with minimal help by daughter. Home via private vehicle.
--- NOTE | 2020-06-25 12:28 | P.DS_ITS ---
History of Present Illness History of Present Illness Chief complaint: disoriented,fever,thinks uti from Catheter Narrative: 79M with PMH of BPH with urinary retention with rome, knee osteoarthritis, mild dementia who presents with fever, decreased appetite, and confusion. Patient had recent visit to ER approximately two weeks ago and was diagnosed with urinary retention. He had a rome placed and he has been on tamsulosin. He has been following up with urology who recommended keeping in rome for another week. He had not been on antibiotics. He was noted yesterday to have some abdominal discomfort and be fore tired than usual. This AM he was confused, had no appetite. His family noted that he had a fever at home and because of this he was brought into the ER. He denied any cough, SOB. He had mild nausea, and mild headache. He denied diarrhea, chest pain, dysuria, blood in the urine. In the ER he was noted to have T 101.6, normal blood pressure and heart rate. Labs were notable for a WBC of 27, 80% PMNs. UA showed 3+ occult blood, 1+ UE, 10-30 WBCs, many urine bacteria. He had rome exchanged in ER. He had CT head done that was unremarkable for any acute process. He was given IV fluids, starte d on IV ceftriaxone. Blood cultures ordered and pending. He was admitted for further treatment. Discharge Providers Provider Date of admission: 06/23/20 14:02 Discharge Date: 06/25/20 Primary care physician: Dann Jensen MD Discharge provider: Guerrero Puri MD Summary Hospital Course Discharge Diagnosis: 1. UTI 2. Urinary retention with rome complicated by infection, present on admission 3. Metabolic encephalopathy secondary to Klebsiella UTI 4. Dementia, mild 5. 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 He had his rome exchanged while here in the hospital. He had urinary tract speciation showing Klebsiella infection resistant only to ampicillin. He was on ceftriaxone in the hospital. He was switched to Bactrim for 5 additional days for one week course of antibiotics. Initially he was febrile with WBC of 27.1, this had downtrended to 16.6 on discharge. He was afebrile. His encephalopathy had resolved. He should follow up with Urology as previously scheduled to determine when rome can be removed. Code Status: Full Discharge time: 30 minutes Exam Vital Signs (past 8 hours): - 06/25/20 07:00 Temperature 98.5 F Pulse Rate 67 Respiratory Rate 16 Blood Pressure 119/72 Pulse Oximetry 95 Oxygen Delivery Method Room Air Oxygen Flow Rate 0 Narrative Exam Narrative: no acute distress Eyes PERRL Cardiovascular regular rate and rhythm Pulmonary clear to auscultation bilaterally GI normal BS, no abdominal tenderness in any quadrant, no rebounding/guarding rome in place draining yellow liquid SKIN no rashes NEURO awake, disoriented to place and time, oriented to self, mumbling conversation does not complete full answers or sentences EXTREM normal upper and lower extremity strength Objective Labs Result Diagrams: 06/25/20 06:04 06/25/20 06:04 Labs: Laboratory Results - last 24 hr 06/25/20 06/25/20 06:04 06:04 WBC 16.6 H RBC 3.91 L Hgb 12.7 L Hct 37.1 L MCV 94.8 MCH 32.5 MCHC 34.3 RDW 13.0 Plt Count 244 Neut % (Auto) 82.6 H Lymph % (Auto) 8.3 L [place] % (Auto) 8.0 Eos % (Auto) 0.9 L Baso % (Auto) 0.2 Neut # (Auto) 02448 H Lymph # (Auto) 1400 [place] # (Auto) 1300 H Eos # (Auto) 100 Baso # (Auto) 0 Sodium 136 L Potassium 3.6 Chloride 105 Carbon Dioxide 24 BUN 18 Creatinine 0.91 Estimated GFR > 60.0 BUN/Creatinine Ratio 19.8 Glucose 97 Calcium 8.4 PFSH Medical History BPH (benign prostatic hyperplasia) Dementia Knee osteoarthritis Urinary retention Social History household members: spouse Smoking Status: Never smoker Discharge Plan Discharge Plan Patient Disposition: Home Provider Discharge Comment: 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 He had a rome placed prior to admission for urinary retention. This was replaced with a new rome. Results from his urinary tests showed he had a bacteria called Klebsiella that was sensitive to antibiotics including Bactrim. He will be discharged on Bactrim for 5 more days, taking twice daily. He should follow up with his urologist as planned. He also developed slight itching and redness in his eyes. He can continue to take artificial tears as needed. Discharge orders & Medications Prescriptions: New sulfamethoxazole-trimethoprim [Bactrim DS] 800-160 mg tablet 1 tab PO BID 5 Days Qty: 10 RF: 0 Continued [ASPIRIN COMBINATION] 81 mg PO PRN PRN (Reason: Pain (Scale Score 1-3)) Qty: 0 RF: 0 tamsulosin 0.4 mg capsule 0.8 mg PO DAILY RF: 0 Follow up/Referrals: Dann Jensen MD [Primary Care Provider] - Discharge Health Status Multidrug resistant organism: No MDRO Diet/Activity/Treatments Diet: Regular Catheter: 2-way Rome Catheter comment: Follow up with urology to determine when rome can be removed. Skin/Wound/Dressing Care Report to your healthcare provider any signs of infection, such as:: chills, fever, night sweats, increased pain, unusual drainage and unusual redness Visit Report/Discharge Packet Instructions: How to Care for Your Rome Catheter -- Male, DI for Urinary Tract Infection (UTI) Discharge Data Primary Care Provider: Dann Jensen V Attending Provider: Guerrero Puri [facility] - Admit Advanced Care Plan / Current Medications Measures: #47 ? Advanced Care Plan Clinician documentation instruction: document at admission. [] I confirmed that the patient's Advance Care Plan is present, code status is d ocumented, or surrogate decision maker is listed in the patient?s medical record. [SATISFIES [facility] PERFORMANCE] If Yes, Stop Here [] The patient?s Advance Care plan is not present because: (select) [[facility] PERFORMANCE EXCEPTION/EXCLUSION] [] I confirmed today that the patient does not wish or was not able to name a surrogate decision maker or provide an Advance Care Plan. [] Hospice care is currently being provided or has been provided this calendar year [] I did NOT confirm today the presence of an Advance Care Plan or surrogate decision maker documented within the patient's medical record. [DOES NOT SATISFY [facility] PERFORMANCE] #130 - Documentation of Current Medications in the Medical Record Clinician documentation instruction: use macro the first time you see a patient. [] I have utilized all available immediate resources to obtain, update, or review the patient?s current medications. [SATISFIES [facility] PERFORMANCE] If Yes, Stop Here [] The patient is not eligible for medication reconciliation; the patient is in an emergent medical situation where delaying treatment would jeopardize the patient?s health. [MIPS PERFORMANCE EXCEPTION/EXCLUSION] [] I did NOT confirm, update or review the patient's current list of medications today. [DOES NOT SATISFY MIPS PERFORMANCE] MIPS - CL Central Venous Catheter Placement Measure: #76 ? Prevention of Central Venous Catheter (CVC) ? Related Bloodstream Infection Clinician documentation instruction: use macro every time you place a central line. [] All elements of Maximal Sterile Barrier Technique, including hand hygiene, sk in prep, and sterile ultrasound technique (if used) were followed. [SATISFIES MIPS PERFORMANCE] If Yes, Stop Here [] If ?No?, the medical reason all elements were NOT used for medical reason [] (ex. emergent condition). [] Maximal Sterile Barrier Technique was not followed, no reason provided [DOES NOT SATISFY MIPS PERFORMANCE] MIPS - DC Heart Failure Measures: #5 - Heart Failure (HF): Angiotensin-Converting Enzyme ( SHWETHA) Inhibitor or Angiotensin Receptor Martin (ARB) Therapy for Left Ventricular Systolic Dysfunction (LVSD) and #8 - Heart Failure (HF): Beta-Martin Therapy for Left Ventricular Systolic Dysfunction (LVSD) Clinician documentation instruction: use macro at every CHF discharge. [] The patient has current or prior documentation of left ventricular ejection fraction (LVEF) less than 40%, or moderate or severely depressed left ventricular systolic function. Answer both: [SATISFIES MIPS PERFORMANCE] [] The patient was prescribed or already taking an Angiotensin-Converting Enzyme (SHWETHA) Inhibitor, or Angiotensin Receptor Martin (ARB). [] The patient was prescribed or already taking a beta-martin. If Yes to Both, Stop Here [] Patient not prescribed/taking: [MIPS PERFORMANCE EXCEPTION/EXCLUSION] [] SHWETHA or ARB for medical/patient/system reason(s) including [] (ex. allergy, intolerance, contraindication) [] Beta-martin for medical/patient/system reason(s) including [] (ex. allergy, intolerance, contraindication) [] Patient not prescribed/taking: [DOES NOT SATISFY MIPS PERFORMANCE] [] SHWETHA or ARB, no reason given [] Beta-martin, no reason given
== END 2020-06-25 12:30 | disposition home or self-care (01) ==
LOC: ED 14:00 → AC 14:43
PROVIDERS: Admitting Provider Internal Medicine; Emergency Provider Emergency Medicine; PCP Internal Medicine; Referring Provider Emergency Medicine; Visit Provider Internal Medicine
DX: N39.0 Urinary tract infection, site not specified (principal); T83.511A Infection and inflammatory reaction due to indwelling urethral catheter, initial encounter; B96.1 Klebsiella pneumoniae [K. pneumoniae] as the cause of diseases classified elsewhere; G93.41 Metabolic encephalopathy; F03.90 Unspecified dementia, unspecified severity, without behavioral disturbance, psychotic disturbance, mood disturbance, and anxiety; N40.1 Benign prostatic hyperplasia with lower urinary tract symptoms; R33.9 Retention of urine, unspecified; Z20.822 Contact with and (suspected) exposure to COVID-19
CPT/HCPCS: 36415; 51701; 51705; 70450; 80048; 80053; 80320; 81001; 82140; 82550; 82962; 83605; 83690; 84484; 85007; 85025; 87040; 87077; 87086; 87186; 87635; 93005; 93010; 94762; 96361; 96365; 96366; 96372; 99284; G0378; J1650; J7050